=== PATIENT | female | born 1995 | race Hispanic/Latino ===

== ENCOUNTER 2018-09-29 20:53 | Emergency (ER) | payer BC ==
[~2018-09-29] VITALS: Ht 152.4 cm; Wt 68.0 kg
== END 2018-09-30 00:17 | disposition home or self-care (01) ==
LOC: ER 20:53
DX: S90.111A Contusion of right great toe without damage to nail, initial encounter (principal); W22.8XXA Striking against or struck by other objects, initial encounter; Y92.008 Other place in unspecified non-institutional (private) residence as the place of occurrence of the external cause
CPT/HCPCS: 99282